=== PATIENT | male | born 1960 | race African-American/Black ===

== ENCOUNTER 2022-02-22 14:53 | Outpatient (CLI) | payer OTHER, BC | END 2022-02-22 14:54 | disposition home or self-care (01) | LOC: CSHRAD 14:53 | PROVIDERS: ATTEND Internal Medicine Endocrinology, Diabetes & Metabolism | DX: M25.562 Pain in left knee (principal); M17.9 Osteoarthritis of knee, unspecified ==

== ENCOUNTER 2022-06-16 11:29 | Emergency (ER) | payer OTHER, BC ==
[2022-06-16] MEDS ORDERED: Tetracaine 0.5% PF 4 ML BOT ONE (12:42)
[2022-06-16] MEDS ORDERED: Fluorescein Opthalmic Strip ONE (12:43)
== END 2022-06-16 13:10 | disposition home or self-care (01) ==
LOC: CSHERS 11:29
DX: S05.02XA Injury of conjunctiva and corneal abrasion without foreign body, left eye, initial encounter (principal); I10 Essential (primary) hypertension; W22.8XXA Striking against or struck by other objects, initial encounter
CPT/HCPCS: 99283

== ENCOUNTER 2024-03-13 11:56 | Emergency (ER) | payer OTHER, BC ==
[2024-03-13] MEDS ORDERED: HYDROcodone/Acetaminophen 5/325 mg Tablet ONE (12:46)
[2024-03-13] MEDS ORDERED: Ketorolac Tromethamine 30 MG (1 mL) VIAL ONE (12:46)
== END 2024-03-13 14:14 | disposition home or self-care (01) ==
LOC: CSHERS 11:56
DX: M54.41 Lumbago with sciatica, right side (principal); I10 Essential (primary) hypertension
CPT/HCPCS: 96372

== ENCOUNTER 2024-03-16 11:03 | Emergency (ER) | payer OTHER, BC ==
[2024-03-16] MEDS ORDERED: Ketorolac Tromethamine 30 MG (1 mL) VIAL ONE (11:41)
== END 2024-03-16 12:15 | disposition home or self-care (01) ==
LOC: CSHERS 11:03
DX: M54.31 Sciatica, right side (principal); I10 Essential (primary) hypertension
CPT/HCPCS: 96372; 99283; J1885